=== PATIENT | male | born 2000 | race Asian ===

== ENCOUNTER 2021-02-02 08:54 | Emergency (ER) | payer OTHER ==
[~2021-02-02] VITALS: Ht 172.7 cm; Wt 78.5 kg
[2021-02-02 09:26] VITALS: BP 127/70
== END 2021-02-02 10:10 | disposition home or self-care (01) ==
LOC: ER 08:54
DX: J45.901 Unspecified asthma with (acute) exacerbation (principal); R05 Cough
CPT/HCPCS: 99281